=== PATIENT | female | born 1985 | race Caucasian/White ===

== ENCOUNTER → 2016-07-17 | Outpatient (CLI) | payer BC ==
--- NOTE | 2016-07-18 10:43 | ECHOF ---
Referral Reason:R01.1 UNDIAGNOSED CARDIAC MURMUR MEASUREMENTS -------- HEIGHT: 152.4 cm WEIGHT: 77.1 kg BP: 180/89 RVIDd: 2.9 cm (< 3.3) IVSd: 1.3 cm (0.6 - 1.1) LVIDd: 4.3 cm (3.9 - 5.3) LVPWd: 1.3 cm (0.6 - 1.1) IVSs: 2.2 cm LVIDs: 2.5 cm LVPWs: 1.6 cm LAESV Index (A-L): 27.44 ml/m Ao Diam: 3.1 cm (2.0 - 3.7) AV Cusp: 1.8 cm (1.5 - 2.6) LA Diam: 3.9 cm (2.7 - 3.8) MV EXCURSION: 15.293 mm (> 18.000) MV EF SLOPE: 93 mm/s (70 - 150) EPSS: 1.1 cm MV E Casey: 1.19 m/s MV DecT: 290 ms MV A Casey: 0.53 m/s MV E/A Ratio: 2.22 AV maxP.39 mmHg AV meanP.14 mmHg RAP: 5.00 mmHg RVSP: 22.74 mmHg FINDINGS -------- Resting bradycardia (HR<60bpm). This was a technically good study. There is mild concentric left ventricular hypertrophy. Overall left ventricular systolic function is normal with, an EF between 60 - 65 %. The right ventricle is normal in size and function. Normal LA size by volume 22+/-6 ml/m2. The right atrium is normal in size. Aortic valve is trileaflet and is mildly thickened. Trace amount of aortic regurgitation. There is no evidence of aortic stenosis. The mitral valve is normal. There is trace to mild mitral regurgitation. Trace tricuspid regurgitation present. There is no evidence of pulmonary hypertension. The right ventricular systolic pressure, as measured by Doppler, is 22.74mmHg. Trace/mild (physiologic) pulmonic regurgitation. The aortic root size is normal. Normal inferior vena cava with normal inspiratory collapse consistent with estimated right atrial pressure of 5 mmHg. The pericardium is normal. There is no pericardial effusion. CONCLUSIONS -------- 1. Resting bradycardia (HR<60bpm). 2. There is no evidence of pulmonary hypertension. 3. The right ventricular systolic pressure, as measured by Doppler, is 22.74mmHg. 4. Trace/mild (physiologic) pulmonic regurgitation. 5. The aortic root size is normal. 6. There is no pericardial effusion. 7. This was a technically good study. 8. There is mild concentric left ventricular hypertrophy. 9. Overall left ventricular systolic function is normal with, an EF between 60 - 65 %. 10. Normal LA size by volume 22+/-6 ml/m2. 11. Aortic valve is trileaflet and is mildly thickened. 12. Trace amount of aortic regurgitation. 13. There is trace to mild mitral regurgitation. 14. Trace tricuspid regurgitation present. W[employer]AF[employer]Y TEACHER: Nishant Barnes RDCS
== END | disposition home or self-care (01) ==
LOC: RADECHMAIN 15:54
PROVIDERS: ATTEND Family Medicine
DX: I08.1 Rheumatic disorders of both mitral and tricuspid valves (principal)
CPT/HCPCS: 93306

== ENCOUNTER → 2017-09-05 | Outpatient (CLI) | payer BC ==
--- NOTE | 2017-09-06 07:38 | US ---
EXAMINATION TYPE: US transvaginal DATE OF EXAM: 09/05/2017 COMPARISON: US CLINICAL HISTORY: R10.9 ABD PAIN,N94.10 DYSPAREUNIA. LLQ pain TECHNIQUE: Transvaginal (TV). Date of LMP: 08/28/2017 EXAM MEASUREMENTS: Uterus: 7.6 x 2.7 x 4.3 cm Endometrial Stripe: 0.3 cm Right Ovary: 2.1 x 1.5 x 2.0 cm Left Ovary: 1.9 x 1.8 x 2.0 cm 1. Uterus: Anteverted Heterogeneous 2. Endometrium: wnl 3. Right Ovary: wnl 4. Left Ovary: wnl, dominant follicle= 1.1 cm 5. Bilateral Adnexa: wnl 6. Posterior cul-de-sac: wnl No abnormality visualized to account for pt's symptoms IMPRESSION: 1. Complex 1.1 cyst left ovary. Follow-up following the next normal menstrual period or 6 weeks is re commended.
== END | disposition home or self-care (01) ==
LOC: RADUSWWP 16:56
PROVIDERS: ATTEND Family Medicine
DX: Z01.411 Encounter for gynecological examination (general) (routine) with abnormal findings (principal); N83.202 Unspecified ovarian cyst, left side; N94.10 Unspecified dyspareunia
CPT/HCPCS: 76830

== ENCOUNTER → 2017-10-22 | Outpatient (CLI) | payer BC ==
--- NOTE | 2017-10-22 09:40 | US ---
EXAMINATION TYPE: US transvaginal DATE OF EXAM: 10/22/2017 COMPARISON: US 09/05/2017 CLINICAL HISTORY: 32-year-old female N83.292 OTHER OVARIAN CYST LT SIDE. Follow up cyst left side TECHNIQUE: Transvaginal sonographic images of the pelvis were acquired. Date of LMP: About 4 weeks ago FINDINGS: EXAM MEASUREMENTS: Uterus: 7.0 x 2.5 x 3.3 cm Endometrial Stripe: 0.2 cm Right Ovary: 2.2 x 1.6 x 1.6 cm Left Ovary: 2.3 x 1.7 x 1.3 cm 1. Uterus: Anteverted wnl 2. Endometrium: wnl 3. Right Ovary: wnl as visualized, partially obscured by bowel gas 4. Left Ovary: wnl as visualized, partially obscured by bowel gas 5. Bilateral Adnexa: wnl 6. Posterior cul-de-sac: wnl IMPRESSION: No appreciable abnormality of the pelvis by transvaginal scanning. No discrete ovarian cyst is seen.
== END | disposition home or self-care (01) ==
LOC: RADUSWWP 08:13
PROVIDERS: ATTEND Family Medicine
DX: Z09 Encounter for follow-up examination after completed treatment for conditions other than malignant neoplasm (principal); Z87.42 Personal history of other diseases of the female genital tract
CPT/HCPCS: 76830

== ENCOUNTER → 2022-07-11 | Outpatient (CLI) | payer BC ==
--- NOTE | 2022-07-12 12:09 | MM ---
Reason for Exam: Screening (asymptomatic). Patient History: Menarche at age 5. Patient has no children. Patient used Hormonal Contraceptives for 5 years. Paternal aunt had breast cancer under age 50. Last menstrual period: 07/11/2022 Risk Values: Sweetie 5 year model risk: 0.6%. NCI Lifetime model risk: 12.2%. Tissue Density: The breast tissue is heterogeneously dense. This may lower the sensitivity of mammography. Findings: Analyzed By CAD. There is a well-circumscribed 17 mm oval mass in the posterior depth inner aspect of the right breast that warrants further workup. Overall Assessment: Incomplete: need additional imaging evaluation, BI-RAD 0 Management: Diagnostic Breast Ultrasound of the right breast. Targeted ultrasound right breast. Patient should continue monthly self-breast exams. A clinical breast exam by your physician is recommended on an annual basis. This exam should not preclude additional follow-up of suspicious palpable abnormalities. Note on Sweetie scores and lifetime risk: 1. A Sweetie score greater than 3% is considered moderate risk. If this is the case, consider specialist referral to assess eligibility for a risk reducing agent. 2. If overall lifetime risk for the development of breast cancer is 20% or higher, the patient may qualify for future screening with alternating mammogram and breast MRI. Electronically signed and approved by: Malcom Dave M.D.
== END | disposition home or self-care (01) ==
LOC: RADMAMWWP 15:08
PROVIDERS: ATTEND Obstetrics & Gynecology
DX: Z12.31 Encounter for screening mammogram for malignant neoplasm of breast (principal); Z80.3 Family history of malignant neoplasm of breast
CPT/HCPCS: 77063; 77067

== ENCOUNTER → 2022-07-17 | Outpatient (CLI) | payer BC ==
--- NOTE | 2022-07-17 14:10 | USB ---
Reason for Exam: Additional evaluation requested from abnormal screening. Patient History: Menarche at age 5. Patient has no children. Patient used Hormonal Contraceptives for 5 years. Paternal aunt had breast cancer under age 50. Risk Values: Sweetie 5 year model risk: 0.6%. NCI Lifetime model risk: 12.2%. Technique: Method: Targeted. Prior Study Comparison: 07/11/2022 Bilateral MG 3D screening mammo w/cad, [facility]. Findings: The upper inner quadrant of the right breast, the axilla of the right breast and the retroareolar of the right breast were scanned. At the right o'clock position approximately 10 cm from the nipple there is a hypoechoic somewhat vascular lesion noted measuring 1.5 x 1.4 x 0.6 cm. Tissue diagnosis is recommended. No evidence for additional lesion within the imaged right breast or axilla. Overall Assessment: Suspicious, BI-RAD 4 Management: Ultrasound Core Biopsy of the right breast. A clinical breast exam by your physician is recommended on an annual basis and results should be correlated with mammographic findings. This exam should not preclude additional follow-up of suspicious palpable abnormalities. Results were given to the patient verbally at the time of exam. Electronically signed and approved by: Wilfrid Staton M.D. Radiologis
== END | disposition home or self-care (01) ==
LOC: RADUSWWP 13:31
PROVIDERS: ATTEND Obstetrics & Gynecology
DX: R92.8 Other abnormal and inconclusive findings on diagnostic imaging of breast (principal); Z80.3 Family history of malignant neoplasm of breast

== ENCOUNTER → 2022-08-02 | Day surgery (SDC) | payer BC ==
--- NOTE | 2022-08-02 14:38 | MM ---
Reason for Exam: Post Procedure Mammogram. Last screening mammogram was performed less than 1 month ago. Patient History: Menarche at age 5. Patient has no children. Patient used Hormonal Contraceptives for 5 years. Paternal aunt had breast cancer under age 50. Risk Values: Sweetie 5 year model risk: 0.6%. NCI Lifetime model risk: 12.2%. Prior Study Comparison: 07/11/2022 Bilateral MG 3D screening mammo w/cad, [facility]. Tissue Density: Right: The breast tissue is heterogeneously dense. This may lower the sensitivity of mammography. Overall Assessment: Post procedure mammogram for marker placement Management: Post Mammogram for Moy Placement Electronically signed and approved by: Alfred Briggs DO
== END ==
LOC: RADUSWWP 12:43
PROVIDERS: ATTEND Surgery
DX: D24.1 Benign neoplasm of right breast (principal); Z80.3 Family history of malignant neoplasm of breast
CPT/HCPCS: 88305; 77065; 19083; A4648

== ENCOUNTER → 2023-05-02 | Outpatient (CLI) | payer BC ==
--- NOTE | 2023-05-02 22:37 | MM ---
Reason for Exam: Follow-up at short interval from prior study. Last screening mammogram was performed 9 month(s) ago. Patient History: Menarche at age 5. Patient has no children. Premenopausal. Patient used Hormonal Contraceptives for 5 years. 10/24/2022, Lumpectomy on the Right side. 2022, Lumpectomy on the Right side. 10/24/2022, Benign MG pre op needle loc RT on the right side. 08/02/2022, Benign US biopsy breast VAD RT on the right side. Paternal aunt had breast cancer, age 25. Risk Values: Sweetie 5 year model risk: 1.6%. NCI Lifetime model risk: 19.4%. Prior Study Comparison: 07/11/2022 Bilateral MG 3D screening mammo w/cad, [facility]. 08/02/2022 Right MG diagnostic mammo RT wo CAD, [facility]. Tissue Density: Right: There are scattered areas of fibroglandular density. Findings: Analyzed By CAD. The pattern is stable. Surgical clips are within the inferior medial right breast that her previous biopsy site. No significant interval changes are evident. No suspicious groups of microcalcifications, spiculated or lobular masses, architectural distortion or other secondary signs of malignancy are mammographically apparent. Overall Assessment: Benign, BI-RAD 2 Management: Screening Mammogram of both breasts in 6 months. A negative mammogram report should not preclude additional follow up of suspicious palpable abnormalities. Patient should continue monthly self breast exam. A clinical breast exam by your physician is recommended on an annual basis and results should be correlated with mammographic findings. Electronically signed and approved by: Dexter Hammond D.O. Radiologis
== END | disposition home or self-care (01) ==
LOC: RADMAMWWP 12:55
PROVIDERS: ATTEND Surgery
DX: R92.321 Mammographic fibroglandular density, right breast (principal); Z80.3 Family history of malignant neoplasm of breast
CPT/HCPCS: 77061; 77065

== ENCOUNTER → 2023-05-11 | Outpatient (CLI) | payer BC ==
--- NOTE | 2023-05-11 15:03 | P.PN ---
Subjective Progress Note Date: 05/11/23 Principal diagnosis: fibroadenoma right breast 05-11-23 Principal diagnosis: discordant right breast core biopsy fibroadenoma right breast Thais is a 37-year-old white female who had her first screening mammogram performed on . This revealed an 17 mm oval mass in the posterior depth inner aspect of the right breast. Further workup was recommended. This led to an ultrasound which subsequently led to an ultrasound- guided core biopsy on . 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 This was discussed with Dr. Dupree from pathology. The radiographs were reviewed with Dr. Staton from radiology. The patient did not feel anything of concern. The patient is not complaining of any nipple discharge or skin changes. She has not had any recent trauma or infection in the breast. She's never had any surgery of her breast. The concern was the biopsy was discordant and excision was recommended. Excision was done on 11-03-23 and revealed a benign fibroadenoma. She ahd a right breast mammogram on 05-02-23 personally reviewed which was BIRAD 2. She is not complaining of any lumps masses or nodules of concern in either breast. Caffeine: 1 cup/day nicotine: none chocolate: weekly BCP: used them for 5 years, stopped 4 years ago Family History: maternal grandmother: of thyroid cancer paternal aunt: of breast cancer Hormonal History: menarche: 5 G0 periods regular, LMP: 3 weeks ago Surgical History: wisdom teeth Medcal History: asthma Social History: smoke: none alcohol: occasional' drugs: none - Constitutional Constitutional: Denies chills, Denies fever - EENT Eyes: denies blurred vision, denies pain Ears: deny: decreased hearing, tinnitus Ears, nose, mouth and throat: Denies headache, Denies sore throat - Breasts Breasts: bilateral: as per HPI - Cardiovascular Cardiovascular: Denies chest pain, Denies shortness of breath - Respiratory Comment: asthma Respiratory: Denies cough - Gastrointestinal Gastrointestinal: Reports constipation, Denies abdominal pain, Denies diarrhea, Denies nausea, Denies vomiting - Genitourinary (Female) Genitourinary: Denies dysuria, Denies hematuria - Menstruation Menstruation: Reports period normal - Musculoskeletal Musculoskeletal: Denies myalgias - Integumentary Integumentary: Denies pruritus, Denies rash - Neurological Neurological: Denies numbness, Denies weakness - Psychiatric Psychiatric: Denies anxiety, Denies depression - Endocrine Endocrine: Denies fatigue, Denies weight change - Hematologic/Lymphatic Comment: none - Allergic/Immunologic Allergic/Immunologic: Reports seasonal allergies Past Medical History Past Medical History: Asthma History of Any Multi-Drug Resistant Organisms: None Reported Past Surgical History: No Surgical Hx Reported Past Anesthesia/Blood Transfusion Reactions: No Reported Reaction Past Psychological History: No Psychological Hx Reported Smoking Status: Never smoker Past Alcohol Use History: Occasional Past Drug Use History: None Reported Medications and Allergies Home Medications Medication Instructions Recorded Confirmed Type Beclomethasone Dip 80 Mcg/Puff 80 mcg INHALATION BID 07/19/22 08/25/22 History [Qvar 80 mcg] L.acidoph,Paracasei, B.lactis 1 each PO DAILY 07/19/22 08/25/22 History [Probiotic] [place]-3/Dha/Epa/Fish Oil [Fish Oil 1 each PO DAILY 07/19/22 08/25/22 History 1,000 mg Softgel] Allergies Allergy/AdvReac Type Severity Reaction Status Date / Time No Known Allergies Allergy Verified 08/25/22 09:43 Objective - Vital Signs Vital signs: Intake & Output 05/10/23 05/11/23 05/11/23 18:59 06:59 18:59 Weight 93.894 kg - Constitutional General appearance: Present: cooperative - EENT Eyes: Present: EOMI ENT: Present: hearing grossly normal - Neck Neck: Present: normal ROM - Respiratory Respiratory: bilateral: CTA - Cardiovascular Rhythm: regular Heart sounds: normal: S1, S2 - Gastrointestinal General gastrointestinal: Present: soft - Integumentary Integumentary: Present: normal turgor - Musculoskeletal Musculoskeletal: Present: gait normal - Psychiatric Psychiatric: Present: A&O x's 3, appropriate affect, intact judgment & insight - Additional findings Additional findings: Breast Exam: BRA: XL sports bra inspection: Bilateral grade 2 ptosis Palpation: Right breast: Multi-positional exam fibrocystic changes no dominant masses or nodules of concern, well-healed scar right breast from prior resection Right axilla: No adenopathy of concern Left breast: Multiple positional exam fibrocystic changes no dominant masses or nodules of concern Left axilla: No adenopathy of concern Assessment and Plan Assessment: Impression: Patient doing well at this time Right breast mammogram performed on 05-02-2023 benign BI-RADS 2 Plan: Bilateral mammogram October 2023 with examination at that time Patient to follow-up sooner any questions or concerns Cc: Claritza Larsen
[2023-05-11 15:34] VITALS: BP 146/78; PULSE 69; RESP 16; TEMP 98.3
== END ==
LOC: WWCWWP 13:49
PROVIDERS: ATTEND Surgery
DX: R92.8 Other abnormal and inconclusive findings on diagnostic imaging of breast (principal); D24.1 Benign neoplasm of right breast; Z91.013 Allergy to seafood; Z80.3 Family history of malignant neoplasm of breast

== ENCOUNTER → 2023-10-24 | Outpatient (CLI) | payer BC ==
--- NOTE | 2023-10-29 08:20 | MM ---
Reason for Exam: Screening (asymptomatic). Last mammogram was performed 1 year(s) and 3 month(s) ago. Patient History: Menarche at age 5. Patient has no children. Premenopausal. Patient used Hormonal Contraceptives for 5 years. 10/24/2022, Lumpectomy on the Right side. 2022, Lumpectomy on the Right side. 10/24/2022, Benign MG pre op needle loc RT on the right side. 08/02/2022, Benign US biopsy breast VAD RT on the right side. Paternal aunt had breast cancer, age 25. Risk Values: Sweetie 5 year model risk: 1.8%. NCI Lifetime model risk: 19.2%. Prior Study Comparison: 07/11/2022 Bilateral MG 3D screening mammo w/cad, [facility]. 08/02/2022 Right MG diagnostic mammo RT wo CAD, [facility]. 05/02/2023 Right MG 3D diag mammo w/cad RT, [facility]. Tissue Density: The breasts are heterogeneously dense, which may obscure small masses. Findings: Analyzed By CAD. The pattern is symmetrical. Postsurgical change from lumpectomy is right posterior medial breast. Chronic nodularity is within the outer right breast. No suspicious groups of microcalcifications, spiculated or lobular masses, architectural distortion or other secondary signs of malignancy are mammographically apparent. Overall Assessment: Benign, BI-RAD 2 Management: Diagnostic Mammogram of both breasts in 1 year. A negative mammogram report should not preclude additional follow up of suspicious palpable abnormalities. Patient should continue monthly self breast exam. A clinical breast exam by your physician is recommended on an annual basis and results should be correlated with mammographic findings. Note on Sweetie scores and lifetime risk: 1. A Sweetie score greater than 3% is considered moderate risk. If this is the case, consider specialist referral to assess eligibility for a risk reducing agent. 2. If overall lifetime risk for the development of breast cancer is 20% or higher, the patient may qualify for future screening with alternating mammogram and breast MRI. [facility], , 10/29/2023 8:17 AM. Electronically signed and approved by: Dexter Hammond D.O. Radiologis
== END | disposition home or self-care (01) ==
LOC: RADMAMWWP 08:11
PROVIDERS: ATTEND Surgery
DX: Z12.31 Encounter for screening mammogram for malignant neoplasm of breast
CPT/HCPCS: 77063; 77067

== ENCOUNTER → 2023-11-16 | Outpatient (CLI) | payer BC ==
[2023-11-16 13:51] VITALS: BP 153/77; PULSE 64; RESP 17; TEMP 98.4
--- NOTE | 2023-11-16 14:30 | P.PN ---
Subjective Progress Note Date: 11/16/23 Principal diagnosis: fibroadenoma right breast 11-16-23 Principal diagnosis: fibroadenoma right breast resected Thais is a 38-year-old white female who had her first screening mammogram performed on . This revealed an 17 mm oval mass in the posterior depth inner aspect of the right breast. Further workup was recommended. This led to an ultrasound which subsequently led to an ultrasound- guided core biopsy on . 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 This was discussed with Dr. Dupree from pathology. The radiographs were reviewed with Dr. Staton from radiology. The patient did not feel anything of concern. The patient is not complaining of any nipple discharge or skin changes. She has not had any recent trauma or infection in the breast. She's never had any surgery of her breast. The concern was the biopsy was discordant and excision was recommended. Excision was done on 11-03-23 and revealed a benign fibroadenoma. She had a bilateral mammogram on 10-24-23 personally interpreted and BIRAD 2 She is not complaining of any lumps masses or nodules of concern in either breast. Marguerite Risk Evaluation: 5-year risk 1.8% NCI lifetime risk 19.2% We have discussed alternating MRI with mammogram however the NCI lifetime risk would need to be over 20%. WE discussed genetic testing and she states she had it done about two years ago and I have requested the results. Caffeine: 1 cup/day nicotine: none chocolate: weekly BCP: used them for 5 years, stopped 4 years ago Family History: maternal grandmother: of thyroid cancer paternal aunt: of breast cancer Hormonal History: menarche: 5 G0 periods regular, LMP: 3 weeks ago Surgical History: wisdom teeth right breast lumpectomy for fibroadenoma Medical History: asthma Social History: smoke: none alcohol: occasional' drugs: none - Constitutional Constitutional: Denies chills, Denies fever - EENT Eyes: denies blurred vision, denies pain Ears: deny: decreased hearing, tinnitus Ears, nose, mouth and throat: Denies headache, Denies sore throat - Breasts Breasts: bilateral: as per HPI - Cardiovascular Cardiovascular: Denies chest pain, Denies shortness of breath - Respiratory Comment: asthma Respiratory: Denies cough - Gastrointestinal Gastrointestinal: Reports constipation, Denies abdominal pain, Denies diarrhea, Denies nausea, Denies vomiting - Genitourinary (Female) Genitourinary: Denies dysuria, Denies hematuria - Menstruation Menstruation: Reports period normal - Musculoskeletal Musculoskeletal: Denies myalgias - Integumentary Integumentary: Denies pruritus, Denies rash - Neurological Neurological: Denies numbness, Denies weakness - Psychiatric Psychiatric: Denies anxiety, Denies depression - Endocrine Endocrine: Denies fatigue, Denies weight change - Hematologic/Lymphatic Comment: none - Allergic/Immunologic Allergic/Immunologic: Reports seasonal allergies Past Medical History Past Medical History: Asthma History of Any Multi-Drug Resistant Organisms: None Reported Past Surgical History: No Surgical Hx Reported Past Anesthesia/Blood Transfusion Reactions: No Reported Reaction Past Psychological History: No Psychological Hx Reported Smoking Status: Never smoker Past Alcohol Use History: Occasional Past Drug Use History: None Reported Medications and Allergies Home Medications Medication Instructions Recorded Confirmed Type Beclomethasone Dip 80 Mcg/Puff 80 mcg INHALATION BID 07/19/22 08/25/22 History [Qvar 80 mcg] L.acidoph,Paracasei, B.lactis 1 each PO DAILY 07/19/22 08/25/22 History [Probiotic] [place]-3/Dha/Epa/Fish Oil [Fish Oil 1 each PO DAILY 07/19/22 08/25/22 History 1,000 mg Softgel] Allergies Allergy/AdvReac Type Severity Reaction Status Date / Time No Known Allergies Allergy Verified 08/25/22 09:43 Objective - Vital Signs Vital signs: Vital Signs Temp 98.4 F 11/16/23 13:47 Pulse 64 11/16/23 13:47 Resp 17 11/16/23 13:47 BP 153/77 11/16/23 13:47 Pulse Ox 98 11/16/23 13:47 FiO2 Intake & Output 11/15/23 11/16/23 11/16/23 18:59 06:59 18:59 Weight 95.254 kg - Constitutional General appearance: Present: cooperative - EENT Eyes: Present: EOMI ENT: Present: hearing grossly normal - Neck Neck: Present: normal ROM - Respiratory Respiratory: bilateral: CTA - Cardiovascular Rhythm: regular Heart sounds: normal: S1, S2 - Integumentary Integumentary: Present: normal turgor - Musculoskeletal Musculoskeletal: Present: gait normal - Psychiatric Psychiatric: Present: A&O x's 3, appropriate affect, intact judgment & insight - Additional findings Additional findings: reast Exam: BRA: XL sports bra inspection: Bilateral grade 2 ptosis Palpation: Right breast: Multi-positional exam fibrocystic changes no dominant masses or nodules of concern, well-healed scar right breast from prior resection Right axilla: No adenopathy of concern Left breast: Multiple positional exam fibrocystic changes no dominant masses or nodules of concern Left axilla: No adenopathy of concern fungal infection under each breast Assessment and Plan Assessment: Impression: Patient doing well at this time Bilateral mammogram performed 10-24-23 personally interpreted BIRAD 2 fungal infection under each breast Plan: Will be due for a bilateral mammogram in October 2024, however she is going to continue to follow with Claritza Larsen and have her order the mammogram. If she has any concerns I will see her back nystatin as needed Greater than 20 minutes spent chart, interpreting laboratory studies, and d iscussing treatment options. I have had a long discussion with the patient regarding risk for breast cancer, we discussed the Marguerite 5-year risk as well as the lifetime risk. We discussed the fact that she is not a candidate for chemoprevention at this time, nor would she be a candidate for alternating MRI and mammograms as her lifetime risk does not exceed 20%. We also discussed fibrocystic breast disease and things that can increase the fibrocystic changes in her breast. She only drinks 1 cup of coffee per day, and is not using any hormonal therapy and does not smoke. At this time there is no evidence of any recurrent fibroadenoma. She is high risk secondary to the fact that she has never had children. Her family history is reviewed. She states she believes she had genetic testing done 2 years ago and we will obtain those results for us. She would prefer to follow with Claritza Larsen unless anything of concern is noted and then she will follow here again. Cc: Claritza Larsen
== END ==
LOC: WWCWWP 13:40
PROVIDERS: ATTEND Surgery